=== PATIENT | male | born 1960 | race Caucasian/White ===

== ENCOUNTER → 2018-08-04 | Day surgery (SDC) | payer BC ==
[~2018-08-04] MED LIST: AMLODIPINE BESY10 MG PO; FENTANYL CITRATE/PF 100MCG/2 ML INJ ONE; GLUCAGON FOR INJ 1 MG VIAL ONE; HYOSCYAMINE SULFATE 0.5 MG/ML INJ ONE; LIDOCAINE HCL 2% LOCAL INJ 5 ML SDV VIAL INJ ONE; MIDAZOLAM HCL 2 MG/2 ML VIAL ONE; ONDANSETRON HCL INJ 2MG/ML 2ML 2 MG/ML VIAL ONE; PRAVASTATIN SOD40 MG PO; PROPOFOL IV EMULSION 10 MG/ML 50 ML VIAL ONE; TAMSULOSIN HCL0.4 MG PO
--- OUTSIDE RECORDS SUMMARY | 2018-08-04 08:41 | XMS REPORT ---
Author Author Ludmila Danielson [facility] eClinicalWorks Address Unknown Phone Unavailable Care Team Providers Care Steam Table Attendant Name Role Phone Ludmila Danielson CP Unavailable Allergies, Adverse Reactions, Alerts Substance Reaction Event Type N.K.D.A. Info Not Available Non Drug Allergy Problems Problem Type Condition Code Onset Dates Condition Status Problem Essential hypertension with goal blood pressure less than 130\/80 I10 Active Problem History of kidney stones Z87.442 Active Problem BMI 35.0-35.9,adult Z68.35 Active Assessment Essential hypertension with goal blood pressure less than 130\/80 I10 Active Assessment Mixed hyperlipidemia E78.2 Active Problem Benign prostatic hyperplasia with lower urinary tract symptoms, unspecified morphology N40.1 Active Problem Mixed hyperlipidemia E78.2 Active Medications Medication Code System Code Instructions Start Date End Date Status Dosage Tamsulosin HCl [facility] [address]-75 0.4 MG Orally Active not defined Amlodipine Besylate [facility] [address]-89 10MG by mouth daily Active 1 tablet Pravastatin Sodium [facility] [address]-86 20 MG Orally Once a day October 29, 2016 Active 1 tablet Vital Signs Date/Time: Feb 04, 2017 BMI 35.70 Index Weight 256 lbs Height 71 in Cardiac Monitoring Heart Rate 80 /min Blood Pressure Diastolic 78 mm Hg Blood Pressure Systolic 120 mm Hg Results No Known Results Summary Purpose eClinicalWorks Submission
--- OUTSIDE RECORDS SUMMARY | 2018-08-04 08:41 | XMS REPORT | Continuity of Care Document ---
Author Author [facility] Interface Address Unknown Phone Unavailable Problems Problem Status Onset Date Classification Date Reported Comments Source History of kidney stones Active Problem 07/27/2018 [facility] Benign prostatic hyperplasia with lower urinary tract symptoms, unspecified morphology Active Problem 07/27/2018 [facility] Essential hypertension with goal blood pressure less than 130\/80 Active Problem 07/27/2018 [facility] Mixed hyperlipidemia Active Problem 07/27/2018 [facility] Abnormal EKG Active Diagnosis 11/17/2016 [facility] BMI 35.0-35.9,adult Active Problem 07/27/2018 [facility] Screening for prostate cancer Active Diagnosis 07/11/2018 [facility] Routine physical examination Active Diagnosis 07/11/2018 [facility] Screening for colon cancer Active Diagnosis 07/11/2018 [facility] Acute URI of multiple sites Active Diagnosis 01/22/2017 [facility] Medications Medication Details Route Status Patient Instructions Ordering Provider Order Date Source Pravastatin Sodium 1 tablet Orally Active 20 MG Orally Once a day Jagjit 10/29/2016 [facility] Pravastatin Sodium 1 tablet Orally Active 40 mg Orally Once a day Jagjit 10/29/2016 [facility] Pravastatin Sodium 1 tablet Orally Active 40 MG Orally Once a day [place] 10/29/2016 [facility] Amlodipine Besylate 1 tablet by mouth Active 10MG by mouth daily [facility] Tamsulosin HCl not defined Orally Active 0.4 MG Orally Jagjit [facility] Pravastatin Sodium 1 TABLET ONCE A DAY ORALLY 90 DAYS NA Active 20 MG Jagjit [facility] Pravastatin Sodium 1 tablet orally Active 40MG orally qd [facility]jit [facility] Amlodipine Besylate 1 tablet orally Active 10MG orally qd [facility]it [facility] Pravastatin Sodium 1 TABLET ONCE A DAY ORALLY 90 DAYS NA Active 20 MG Jagjit [facility] Amlodipine Besylate 1 tablet orally Active 10MG orally once a day Jagjit [facility] Allergies, Adverse Reactions, Alerts Substance Category Reaction Severity Reaction type Status Date Reported Comments Source N.K.D.A. Adverse Reaction Info Not Available Adverse Reaction Active 07/07/2018 [facility] Immunizations Immunization Date Given Site Status Last Updated Comments Source Results Order Name Results Value Reference Range Date Interpretation Comments Source Vital Signs Vital Sign Value Date Comments Source Weight 262 07/07/2018 [facility] Height 71 07/07/2018 [facility] Heart Rate 94 07/07/2018 [facility] Diastolic (mm Hg) 74 07/07/2018 [facility] Systolic (mm Hg) 100 07/07/2018 [facility] Weight 262 07/08/2017 [facility] Height 71 07/08/2017 [facility] Heart Rate 104 07/08/2017 [facility] Diastolic (mm Hg) 84 07/08/2017 [facility] Systolic (mm Hg) 144 07/08/2017 [facility] Weight 264 06/24/2017 [facility] Height 71 06/24/2017 [facility] Heart Rate 92 06/24/2017 [facility] Diastolic (mm Hg) 84 06/24/2017 [facility] Systolic (mm Hg) 122 06/24/2017 [facility] Weight 256 02/04/2017 [facility] Height 71 02/04/2017 [facility] Heart Rate 80 02/04/2017 [facility] Diastolic (mm Hg) 78 02/04/2017 [facility] Systolic (mm Hg) 120 02/04/2017 [facility] Weight 257 01/20/2017 [facility] Height 71 01/20/2017 [facility] Temperature Oral (F) 98.5 F 01/20/2017 [facility] Heart Rate 94 01/20/2017 [facility] Diastolic (mm Hg) 78 01/20/2017 [facility] Systolic (mm Hg) 130 01/20/2017 [facility] Weight 254 11/26/2016 [facility] Height 71 11/26/2016 [facility] Diastolic (mm Hg) 84 11/26/2016 [facility] Systolic (mm Hg) 116 11/26/2016 [facility] Weight 253 11/15/2016 [facility] Height 71 11/15/2016 [facility] Heart Rate 112 11/15/2016 [facility] Diastolic (mm Hg) 64 11/15/2016 [facility] Systolic (mm Hg) 116 11/15/2016 [facility] Weight 254 10/29/2016 [facility] Height 71 10/29/2016 [facility] Heart Rate 108 10/29/2016 [facility] Diastolic (mm Hg) 84 10/29/2016 [facility] Systolic (mm Hg) 116 10/29/2016 [facility] Weight 258 10/15/2016 [facility] Height 71 10/15/2016 [facility] Heart Rate 101 10/15/2016 [facility] Diastolic (mm Hg) 90 10/15/2016 [facility] Systolic (mm Hg) 130 10/15/2016 [facility] Encounters Location Location Details Encounter Type Encounter Number Reason For Visit Attending Provider ADM Date DC Date Status Source Outpatient [id number] SONY MONTEJO 06/01/2018 Active [facility] Outpatient [id number] SONY MONTEJO 11/30/2018 Active [facility] Procedures Procedure Code Date Perfomer Comments Source
--- OUTSIDE RECORDS SUMMARY | 2018-08-04 08:41 | XMS REPORT ---
Author Author Ludmila Danielson [facility] eClinicalWorks Address Unknown Phone Unavailable Care Team Providers Care Assembly Department Supervisor Name Role Phone Ludmila Danielson CP Unavailable Allergies No Known Allergies Problems Problem Type Condition Code Onset Dates Condition Status Problem Essential hypertension with goal blood pressure less than 130\/80 I10 Active Problem History of kidney stones Z87.442 Active Problem BMI 35.0-35.9,adult Z68.35 Active Assessment Mixed hyperlipidemia E78.2 Active Problem Benign prostatic hyperplasia with lower urinary tract symptoms, unspecified morphology N40.1 Active Problem Mixed hyperlipidemia E78.2 Active Medications Medication Code System Code Instructions Start Date End Date Status Dosage Pravastatin Sodium [facility] [address]-24 40 MG Orally Once a day October 29, 2016 Active 1 tablet Results No Known Results Summary Purpose eClinicalWorks Submission
--- OUTSIDE RECORDS SUMMARY | 2018-08-04 08:41 | XMS REPORT ---
Author Author Ludmila Danielson [facility] eClinicalWorks Address Unknown Phone Unavailable Care Team Providers Care Air And Water Tester Name Role Phone Ludmila Danielson CP Unavailable [...] pressure less than 130\/80 I10 Active Assessment BMI 35.0-35.9,adult Z68.35 Active Problem Benign prostatic hyperplasia with lower urinary tract symptoms, unspecified morphology N40.1 Active Problem Mixed hyperlipidemia E78.2 Active Medications Medication Code System Code Instructions Start Date End Date Status Dosage Pravastatin Sodium [facility] [address]-72 20 MG Orally Once a day October 29, 2016 Active 1 tablet Tamsulosin HCl [facility] [address]-27 0.4 MG Orally Active not defined Amlodipine Besylate [facility] [address]-80 10MG by mouth daily Active 1 tablet Vital Signs Date/Time: November 26, 2016 BMI 35.42 Index Weight 254 lbs Height 71 in Blood Pressure Diastolic 84 mm Hg Blood Pressure Systolic 116 mm Hg Results No Known Results Summary Purpose eClinicalWorks Submission
--- OUTSIDE RECORDS SUMMARY | 2018-08-04 08:41 | XMS REPORT ---
Author Author Deidre Ruiz Organization eClinicalWorks Address Unknown Phone Unavailable Care Team Providers Care Homogenizer Operator Name Role Phone Deidre Ruiz CP Unavailable Allergies, Adverse Reactions, Alerts Substance Reaction Event Type N.K.D.A. Info Not Available Non Drug Allergy Problems Problem Type Condition Code Onset Dates Condition Status Problem History of kidney stones Z87.442 Active Problem Benign prostatic hyperplasia with lower urinary tract symptoms, unspecified morphology N40.1 Active Problem Essential hypertension with goal blood pressure less than 130\/80 I10 Active Assessment Essential hypertension with goal blood pressure less than 130\/80 I10 Active Assessment Abnormal EKG R94.31 Active Problem Mixed hyperlipidemia E78.2 Active Assessment Mixed hyperlipidemia E78.2 Active Medications Medication Code System Code Instructions Start Date End Date Status Dosage Tamsulosin HCl [facility] [address]-89 0.4 MG Orally Active not defined Amlodipine Besylate [facility] [address]-75 10MG by mouth daily Active 1 tablet Pravastatin Sodium [facility] [address]-93 20 MG Orally Once a day October 29, 2016 Active 1 tablet Vital Signs Date/Time: November 15, 2016 BMI 35.28 Index Weight 253 lbs Height 71 in Cardiac Monitoring Heart Rate 112 /min Blood Pressure Diastolic 64 mm Hg Blood Pressure Systolic 116 mm Hg Results No Known Results Summary Purpose eClinicalWorks Submission
--- OUTSIDE RECORDS SUMMARY | 2018-08-04 08:41 | XMS REPORT ---
Author Author Ludmila Danielson [facility] eClinicalWorks Address Unknown Phone Unavailable Care Team Providers Care Help Desk Technician Name Role Phone Ludmila Danielson CP Unavailable Allergies No Known Allergies Problems Problem Type Condition Code Onset Dates Condition Status Problem History of kidney stones Z87.442 Active Problem Benign prostatic hyperplasia with lower urinary tract symptoms, unspecified morphology N40.1 Active Problem Essential hypertension with goal blood pressure less than 130\/80 I10 Active Problem Mixed hyperlipidemia E78.2 Active Assessment Abnormal EKG R94.31 Active Medications Medication Code System Code Instructions Start Date End Date Status Dosage Amlodipine Besylate [facility] [address]-31 10MG by mouth daily Active 1 tablet Pravastatin Sodium [facility] [address]-10 20 MG Orally Once a day October 29, 2016 Active 1 tablet Tamsulosin HCl [facility] [address]-81 0.4 MG Orally Active not defined Results No Known Results Summary Purpose eClinicalWorks Submission
--- OUTSIDE RECORDS SUMMARY | 2018-08-04 08:41 | XMS REPORT ---
Author Author Ludmila Danielson [facility] eClinicalWorks Address Unknown Phone Unavailable Care Team Providers Care Correctional Maintenance Technician Name Role Phone Ludmila Danielson CP Unavailable Allergies, Adverse Reactions, Alerts Substance Reaction Event Type N.K.D.A. Info Not Available Non Drug Allergy Problems Problem Type Condition Code Onset Dates Condition Status Problem History of kidney stones Z87.442 Active Problem Essential hypertension with goal blood pressure less than 130\/80 I10 Active Problem BMI 35.0-35.9,adult Z68.35 Active Assessment Essential hypertension with goal blood pressure less than 130\/80 I10 Active Assessment Mixed hyperlipidemia E78.2 Active Problem Mixed hyperlipidemia E78.2 Active Problem Benign prostatic hyperplasia with lower urinary tract symptoms, unspecified morphology N40.1 Active Medications Medication Code System Code Instructions Start Date End Date Status Dosage Tamsulosin HCl [facility] [address]-80 0.4 MG Orally Active not defined Amlodipine Besylate [facility] 64212586587 10MG orally once a day Active 1 tablet Pravastatin Sodium [facility] 61670557945 40 mg Orally Once a day October 29, 2016 Active 1 tablet Vital Signs Date/Time: Jul 08, 2017 BMI 36.54 Index Weight 262 lbs Height 71 in Cardiac Monitoring Heart Rate 104 /min Blood Pressure Diastolic 84 mm Hg Blood Pressure Systolic 144 mm Hg Results No Known Results Summary Purpose eClinicalWorks Submission
--- OUTSIDE RECORDS SUMMARY | 2018-08-04 08:41 | XMS REPORT ---
Author Author Ludmila Danielson [facility] eClinicalWorks Address Unknown Phone Unavailable Care Team Providers Care Slip Box Changer Name Role Phone Ludmila Danielson CP Unavailable Allergies No Known Allergies Problems Problem Type Condition Code Onset Dates Condition Status Problem History of kidney stones Z87.442 Active Problem Essential hypertension with goal blood pressure less than 130\/80 I10 Active Problem BMI 35.0-35.9,adult Z68.35 Active Problem Mixed hyperlipidemia E78.2 Active Problem Benign prostatic hyperplasia with lower urinary tract symptoms, unspecified morphology N40.1 Active Medications Medication Code System Code Instructions Start Date End Date Status Dosage Pravastatin Sodium [facility] 33487343050 20 MG Inactive 1 TABLET ONCE A DAY ORALLY 90 DAYS Amlodipine Besylate [facility] 39377605165 10MG orally once a day Active 1 tablet Pravastatin Sodium [facility] 07623299184 40 mg Orally Once a day October 29, 2016 Active 1 tablet Results No Known Results Summary Purpose eClinicalWorks Submission
--- OUTSIDE RECORDS SUMMARY | 2018-08-04 08:41 | XMS REPORT ---
Author Ludmila [facility] eClinicalWorks Address Unknown Phone Unavailable Care Team Providers Care Trauma Registrar Name Role Phone Ludmila Danielson CP Unavailable Allergies, Adverse Reactions, Alerts Substance Reaction Event Type N.K.D.A. Info Not Available Non Drug Allergy Problems Problem Type Condition Code Onset Dates Condition Status Assessment Acute URI of multiple sites J06.9 Active Problem Essential hypertension with goal blood [...] Date End Date Status Dosage Tamsulosin HCl [facility] [address]-87 0.4 MG Orally Active not defined Amlodipine Besylate [facility] [address]-02 10MG by mouth daily Active 1 tablet Pravastatin Sodium [facility] [address]-40 20 MG Orally Once a day October 29, 2016 Active 1 tablet Vital Signs Date/Time: Jan 20, 2017 BMI 35.84 Index Weight 257 lbs Height 71 in Temperature 98.5 F Cardiac Monitoring Heart Rate 94 /min Blood Pressure Diastolic 78 mm Hg Blood Pressure Systolic 130 mm Hg Results Name Result Date Reference Range Unit Abnormality Flag CBC ----Platelets 253 [id number] ----NEUTROPHILS MID-0.5,GRA-4.0 [id number] ----MCHC 34.5 [id number] ----MCH 32.3H [id number] ----MCV 93.7 [id number] ----WBC 6.2 [id number] ----RDW 13.0 [id number] ----RBC 5.20 [id number] ----Hemoglobin 16.8 [id number] ----Hematocrit 48.7 [id number] Summary Purpose eClinicalWorks Submission
--- OUTSIDE RECORDS SUMMARY | 2018-08-04 08:41 | XMS REPORT ---
Author Author Ludmila Danielson [facility] eClinicalWorks Address Unknown Phone Unavailable Care Team Providers Care Demand Equipment Repairer Name Role Phone Ludmila Danielson CP Unavailable [...] E78.2 Active Problem Mixed hyperlipidemia E78.2 Active Assessment Essential hypertension with goal blood pressure less than 130\/80 I10 Active Medications Medication Code System Code Instructions Start Date End Date Status Dosage Pravastatin Sodium [facility] [address]-04 20 MG Orally Once a day October 29, 2016 Active 1 tablet Tamsulosin HCl [facility] [address]-64 0.4 MG Orally Active not defined Amlodipine Besylate [facility] [address]-00 10MG by mouth daily Active 1 tablet Vital Signs Date/Time: October 29, 2016 BMI 35.42 Index Weight 254 lbs Height 71 in Cardiac Monitoring Heart Rate 108 /min Blood Pressure Diastolic 84 mm Hg Blood Pressure Systolic 116 mm Hg Results No Known Results Summary Purpose eClinicalWorks Submission
--- OUTSIDE RECORDS SUMMARY | 2018-08-04 08:41 | XMS REPORT ---
Author Author Ludmila Danielson [facility] eClinicalWorks Address Unknown Phone Unavailable Care Team Providers Care Shipfitter Name Role Phone Ludmila Danielson CP Unavailable [...] pressure less than 130\/80 I10 Active Assessment Screening for prostate cancer Z12.5 Active Assessment Abnormal EKG R94.31 Active Assessment Routine physical examination Z00.00 Active Assessment Essential hypertension with goal blood pressure less than 130\/80 I10 Active Medications Medication Code System Code Instructions Start Date End Date Status Dosage Tamsulosin HCl [facility] [address]-31 0.4 MG Orally Active not defined Amlodipine Besylate [facility] [address]-35 10MG by mouth daily Active 1 tablet Vital Signs Date/Time: October 15, 2016 BMI 35.98 Index Weight 258 lbs Height 71 in Cardiac Monitoring Heart Rate 101 /min Blood Pressure Diastolic 90 mm Hg Blood Pressure Systolic 130 mm Hg Results Name Result Date Reference Range Unit Abnormality Flag EKG Summary Purpose eClinicalWorks Submission
--- OUTSIDE RECORDS SUMMARY | 2018-08-04 08:42 | XMS REPORT ---
Author Author Ludmila Danielson Organization eClinicalWorks Address Unknown Phone Unavailable Care Team Providers Care Public Health Officer Name Role Phone Ludmila Danielson CP Unavailable Allergies, Adverse Reactions, Alerts Substance Reaction Event Type N.K.D.A. Info Not Available Non Drug Allergy Problems Problem Type Condition Code Onset Dates Condition Status Assessment Benign prostatic hyperplasia with lower urinary tract symptoms, unspecified morphology N40.1 Active Assessment Essential hypertension with goal blood pressure less than 130\/80 I10 Active Assessment History of kidney stones Z87.442 Active Problem History of kidney stones Z87.442 Active Problem Essential hypertension with goal blood pressure less than 130\/80 I10 Active Problem BMI 35.0-35.9,adult Z68.35 Active Assessment Routine physical examination Z00.00 Active Problem Mixed hyperlipidemia E78.2 Active Problem Benign prostatic hyperplasia with lower urinary tract symptoms, unspecified morphology N40.1 Active Assessment Screening for prostate cancer Z12.5 Active Assessment Screening for colon cancer Z12.11 Active Assessment BMI 35.0-35.9,adult Z68.35 Active Assessment Mixed hyperlipidemia E78.2 Active Medications Medication Code System Code Instructions Start Date End Date Status Dosage Tamsulosin HCl [facility] [address]-28 0.4 MG Orally Active not defined Pravastatin Sodium [facility] 54297872669 40MG orally qd Active [address] [facility] 09406714566 10MG orally qd Active 1 tablet Vital Signs Date/Time: Jul 07, 2018 BMI 36.54 Index Weight 262 lbs Height 71 in Cardiac Monitoring Heart Rate 94 /min Blood Pressure Diastolic 74 mm Hg Blood Pressure Systolic 100 mm Hg Results Name Result Date Reference Range Unit Abnormality Flag Chest 2 views- Xray EKG Summary Purpose eClinicalWorks Submission
--- OUTSIDE RECORDS SUMMARY | 2018-08-04 08:42 | XMS REPORT ---
Author Author Erika Poe [facility] eClinicalWorks Address Unknown Phone Unavailable Care Team Providers Care Puppet Engineer Name Role Phone Erika Poe CP Unavailable Allergies No Known Allergies Problems Problem Type Condition Code Onset Dates Condition Status Problem History of kidney stones Z87.442 Active Problem Essential hypertension with goal blood pressure less than 130\/80 I10 Active Problem BMI 35.0-35.9,adult Z68.35 Active Problem Mixed hyperlipidemia E78.2 Active Problem Benign prostatic hyperplasia with lower urinary tract symptoms, unspecified morphology N40.1 Active Medications No Known Medications Results No Known Results Summary Purpose eClinicalWorks Submission
--- OUTSIDE RECORDS SUMMARY | 2018-08-04 08:42 | XMS REPORT ---
Author Author Ludmila Danielson [facility] eClinicalWorks Address Unknown Phone Unavailable Care Team Providers Care Tan Room Supervisor Name Role Phone Ludmila Danielson CP [...] Date End Date Status Dosage Tamsulosin HCl [facility] [address]-03 0.4 MG Orally Active not defined Pravastatin Sodium [facility] 89356308564 40 mg Orally Once a day October 29, 2016 Active 1 tablet Amlodipine Besylate [facility] 53725183568 10MG orally once a day Active 1 tablet Vital Signs Date/Time: Jun 24, 2017 BMI 36.82 Index Weight 264 lbs Height 71 in Cardiac Monitoring Heart Rate 92 /min Blood Pressure Diastolic 84 mm Hg Blood Pressure Systolic 122 mm Hg Results No Known Results Summary Purpose eClinicalWorks Submission
--- OUTSIDE RECORDS SUMMARY | 2018-08-04 08:42 | XMS REPORT ---
Author Author Erika Poe Organization eClinicalWorks Address Unknown Phone Unavailable Care Team Providers Care Bar Helper Name Role Phone Erika Poe CP Unavailable [...]
--- OUTSIDE RECORDS SUMMARY | 2018-08-04 08:42 | XMS REPORT ---
Author Author Ludmila Danielson [facility] eClinicalWorks Address Unknown Phone Unavailable Care Team Providers Care Emt/Paramedic Name Role Phone Ludmila Danielson CP Unavailable [...] End Date Status Dosage Pravastatin Sodium [facility] 58041913411 20 MG Inactive 1 TABLET ONCE A DAY ORALLY 90 DAYS Pravastatin Sodium [facility] 61670383512 40MG orally qd LAST REFILL, NEEDS TO BE SEEN Active 1 tablet Amlodipine Besylate [place] 87251417701 10MG orally qd [place]ST REFILL Active 1 tablet Results No Known Results Summary Purpose eClinicalWorks Submission
--- OUTSIDE RECORDS SUMMARY | 2018-08-04 08:42 | XMS REPORT ---
Author Author Ludmila Danielson [facility] eClinicalWorks Address Unknown Phone Unavailable Care Team Providers Care Customer Support Representative Name Role Phone Ludmila Danielson CP Unavailable [...]
[2018-08-04 18:45] VITALS: BP 119/85
--- NOTE | 2018-08-05 01:14 | Operative Report ---
DATE OF PROCEDURE: 08/04/2018 SURGEON: Melvin Durán MD PROCEDURE: Colonoscopy and polypectomy. REFERRING PHYSICIAN: Erika Cortez DO INDICATION FOR COLONOSCOPY: Surveillance colonoscopy, personal history of colon polyps. MEDICATIONS: The patient was done under MAC. Please see anesthesiologist's note. PROCEDURE IN DETAIL: With the patient in left lateral decubitus position, a flexible fiberoptic Olympus colonoscope was inserted into the rectum with ease and advanced all the way to the cecum. The minute polyps were hot biopsied from the cecum and polypectomy site was hemoclipped x2. The scope was then withdrawn slowly. Mucosa overlying the ascending and the transverse colon appeared to be within normal limits. Diverticular disease was noted to be scattered throughout, but more prominent in the left colon. One polyp was hot biopsied from the descending and polypectomy site was hemoclipped. Other than diverticular disease, the sigmoid colon appeared to be within normal limits. The scope was then retroflexed into the distal rectum and moderate size internal hemorrhoids were noted, none of which was actively bleeding. The scope was then straightened out, it was subsequently withdrawn. The patient tolerated the procedure well. IMPRESSION: 1. Cecal polyp, hot biopsied, hemoclipped x2. 2. Descending colon polyp, hot biopsied, hemoclipped x1. 3. Diverticulosis. 4. Internal hemorrhoids, none actively bleeding. PLAN: Follow up pathology. Initiate high-fiber, low-fat diet. Initiate high-fiber supplement. The patient might benefit from a followup colonoscopy in 3 to 5 years. Melvin Durán MD [facility] [place] /[id number] cc: Erika Cortez DO
== END | disposition home or self-care (01) ==
LOC: OR 08:38
PROVIDERS: ATTEND Internal Medicine Gastroenterology
DX: Z12.11 Encounter for screening for malignant neoplasm of colon (principal); Z86.010 Personal history of colon polyps; K92.1 Melena; K57.30 Diverticulosis of large intestine without perforation or abscess without bleeding; K63.5 Polyp of colon; K64.8 Other hemorrhoids; I10 Essential (primary) hypertension; E78.5 Hyperlipidemia, unspecified; E66.01 Morbid (severe) obesity due to excess calories; N20.0 Calculus of kidney; N40.0 Benign prostatic hyperplasia without lower urinary tract symptoms
CPT/HCPCS: 45384; J1610; J1980; J2001; J2250; J2405; J2704

== ENCOUNTER → 2023-09-29 | Day surgery (SDC) | payer BC ==
[~2023-09-29] MED LIST changes: +DEXMEDETOMIDINE HCL 2 ML ONE; -FENTANYL CITRATE/PF 100MCG/2 ML INJ ONE; +FIBER LAX625 MG PO; -GLUCAGON FOR INJ 1 MG VIAL ONE; -HYOSCYAMINE SULFATE 0.5 MG/ML INJ ONE; -MIDAZOLAM HCL 2 MG/2 ML VIAL ONE; -ONDANSETRON HCL INJ 2MG/ML 2ML 2 MG/ML VIAL ONE; +PROPOFOL IV EMULSION 10 MG/ML 20 ML VIAL ONE; -PROPOFOL IV EMULSION 10 MG/ML 50 ML VIAL ONE; +PROPOFOL IV EMULSION 50 ML IV ONE; +SODIUM CHLORIDE 0.9% 100 ML ONE
[2023-09-29] MEDS: LACTATED RINGER'S 1,000 ML ONE (05:39)
[2023-09-29 07:59] VITALS: TEMP 97.8
[2023-09-29 08:25] VITALS: BP 119/79; PULSE 71; RESP 17; O2SAT 100
== END | disposition home or self-care (01) ==
LOC: OR 05:32
PROVIDERS: ATTEND Internal Medicine Gastroenterology
DX: Z12.11 Encounter for screening for malignant neoplasm of colon (principal); K63.5 Polyp of colon; K57.30 Diverticulosis of large intestine without perforation or abscess without bleeding; K64.8 Other hemorrhoids; N20.0 Calculus of kidney; L40.9 Psoriasis, unspecified; I10 Essential (primary) hypertension; Z01.810 Encounter for preprocedural cardiovascular examination; Z80.0 Family history of malignant neoplasm of digestive organs
CPT/HCPCS: 45385; 93005; J2001; J2704 ×2; J7050; J7121